=== PATIENT | male | born 1990 | race Hispanic/Latino ===

== ENCOUNTER 2017-12-25 06:46 | Emergency (ER) | payer OTHER ==
[2017-12-25] MEDS: KETOROLAC 30 MG/ML VIAL (J1885) IV (07:36)
[2017-12-25] MEDS: ONDANSETRON 4MG/2ML VIAL (J2405) IV (07:36)
[2017-12-25] MEDS: MORPHINE 4 MG/ML 1ML VIAL/SYRINGE (J2270) IV ×2 (07:37→08:36)
== END 2017-12-25 09:24 | disposition home or self-care (01) ==
LOC: M ED 06:46
DX: S42.202A Unspecified fracture of upper end of left humerus, initial encounter for closed fracture (principal); W00.0XXA Fall on same level due to ice and snow, initial encounter; Y92.59 Other trade areas as the place of occurrence of the external cause; Y99.0 Civilian activity done for income or pay
CPT/HCPCS: J2270